=== PATIENT | male | born 1995 | race Caucasian/White ===

== ENCOUNTER 2021-09-27 05:02 | Emergency (ER) | payer SELFPAY ==
[2021-09-27 05:36] VITALS: TEMP 97.7; BMI 41.1
[2021-09-27 06:00] LABS: BASO % 0.5 % (0-2.0); EOS % 0.5 % (0-4.5); HEMATOCRIT 46.5 % (35.4-49); HEMOGLOBIN 15.9 GM/dL (11.7-16.9); LYMPH % 19.9 % (8-40); MCHC 34.1 g/dl (32.0-35.9); MEAN CELL VOLUME 79.2 fl (80-96); MONO % 6.1 % (3.8-10.2); PLATELET COUNT 214 10^3/uL (134-434); RBC 5.87 M/mm3 (4.00-5.60); RDW 13.8 % (11.9-15.9); WHITE BLOOD COUNT 11.4 K/mm3 (4.0-10.0)
[2021-09-27 06:19] LABS: ALBUMIN 3.8 g/dl (3.4-5.0); CALCIUM 8.5 mg/dL (8.5-10.1)
[2021-09-27 06:22] LABS: CREATININE 0.8 mg/dL (0.55-1.3)
[2021-09-27 06:24] LABS: BILIRUBIN,TOTAL 0.6 mg/dL (0.2-1); TOT PROT 7.2 g/dl (6.4-8.2)
[2021-09-27] MEDS ORDERED: FAMOTIDINE 20 MG/50 ML IVPB 20 MG/50 ML MG IVPB ONE (07:39)
[2021-09-27 08:08] VITALS: BP 118/72; PULSE 77
== END 2021-09-27 07:50 | disposition home or self-care (01) ==
LOC: JER 05:02
DX: R07.9 Chest pain, unspecified (principal)
CPT/HCPCS: 36415; 71046-TC-FY; 80053; 83735; 84443; 84484; 85025; 85379; 93005; 93010; 99285-25

== ENCOUNTER 2022-12-26 11:32 | Inpatient (IN) | payer OTHER ==
[2022-12-26] MEDS ORDERED: LACTATED RINGERS SOLUTION 1,000 ML/1,000 ML INFUS.BAG IV STA (12:07)
[2022-12-26] MEDS ORDERED: ONDANSETRON 4 MG/2 ML VIAL IVPUSH ONE (12:08)
[2022-12-26] MEDS ORDERED: FAMOTIDINE 20 MG/50 ML IVPB 20 MG/50 ML MG IVPB ONE (12:08)
[2022-12-26] MEDS ORDERED: ONDANSETRON 4 MG/2 ML VIAL ONE (12:19)
[2022-12-26] MEDS ORDERED: FAMOTIDINE 10 MG/ML VIAL IVPB ONE (12:29)
[2022-12-26 12:44] LABS: BASO % 0.3 % (0-2.0); EOS % 0.1 % (0-4.5); HEMATOCRIT 40.9 % (35.4-49); LYMPH % 17.8 % (8-40); MCH 26.3 pg (25.7-33.7); MCHC 34.3 g/dl (32.0-35.9); MEAN CELL VOLUME 76.6 fl (80-96); MEAN PLT VOLUME 8.7 fl (7.5-11.1); MONO % 7.8 % (3.8-10.2); PLATELET COUNT 114 10^3/uL (134-434); RBC 5.34 M/mm3 (4.00-5.60); RDW 13.6 % (11.9-15.9); WHITE BLOOD COUNT 2.5 K/mm3 (4.0-10.0)
[2022-12-26 12:49] LABS: INR 1.22 (0.83-1.09); PROTHROMBIN TIME (PATIENT) 14.1 SEC (9.7-13.0)
[2022-12-26 13:05] LABS: EPI CELLS >36 /uL (0-25.1); HYALINE CASTS 14 /uL (0-3.1); PH,URINE 5.5 (5.0-8.0); URINE APPEARANCE CLEAR; URINE BILIRUBIN 2+ (NEGATIVE); URINE COLOR DK YELLOW; URINE GLUCOSE (UA) NEGATIVE (NEGATIVE); URINE KETONE TRACE (NEGATIVE); URINE LEUK ESTERASE TRACE (NEGATIVE); URINE NITRITE POSITIVE (NEGATIVE); URINE PROTEIN 1+ (NEGATIVE); URINE RBC 18 /uL (0-23.9); URINE WBC 123 /uL (0-25.8)
[2022-12-26 13:06] LABS: POTASSIUM 3.6 mmol/L (3.5-5.1)
[2022-12-26 13:08] LABS: CALCIUM 8.1 mg/dL (8.5-10.1)
[2022-12-26 13:09] LABS: ALBUMIN 3.8 g/dl (3.4-5.0); BLOOD UREA NITROGEN 8.3 mg/dL (7-18)
[2022-12-26 13:12] LABS: CREATININE 0.8 mg/dL (0.55-1.3); PHOSPHOROUS 2.9 mg/dL (2.5-4.9)
[2022-12-26 13:13] LABS: BILIRUBIN,TOTAL 1.5 mg/dL (0.2-1); TOT PROT 6.9 g/dl (6.4-8.2)
[2022-12-26] MEDS ORDERED: ONDANSETRON 4 MG/2 ML VIAL IVPUSH PRN (15:45)
[2022-12-26] MEDS ORDERED: LOPERAMIDE HCL 2 MG CAPSULE PO PRN (16:37)
[2022-12-26] MEDS: LACTATED RINGERS SOLUTION 1,000 ML/1,000 ML INFUS.BAG IV SCH (16:45)
[2022-12-26 17:19] VITALS: BMI 44.4
[2022-12-27] MEDS ORDERED: ZOLPIDEM TARTRATE 5 MG TABLET PO ONE (02:15)
[2022-12-27 09:09] LABS: HEMATOCRIT 38.1 % (35.4-49); HEMOGLOBIN 13.1 GM/dL (11.7-16.9); MCH 26.3 pg (25.7-33.7); MCHC 34.4 g/dl (32.0-35.9); MEAN CELL VOLUME 76.6 fl (80-96); MEAN PLT VOLUME 8.5 fl (7.5-11.1); PLATELET COUNT 100 10^3/uL (134-434); RBC 4.97 M/mm3 (4.00-5.60); RDW 13.6 % (11.9-15.9)
[2022-12-27 09:31] LABS: POTASSIUM 3.6 mmol/L (3.5-5.1)
[2022-12-27 09:35] LABS: ALBUMIN 3.6 g/dl (3.4-5.0); BLOOD UREA NITROGEN 6.5 mg/dL (7-18); CALCIUM 7.8 mg/dL (8.5-10.1)
[2022-12-27 09:38] LABS: CREATININE 0.9 mg/dL (0.55-1.3)
[2022-12-27 09:39] LABS: BILIRUBIN,TOTAL 1.8 mg/dL (0.2-1); TOT PROT 6.4 g/dl (6.4-8.2)
[2022-12-27] MEDS: PANTOPRAZOLE SODIUM 40 MG VIAL IVPUSH SCH (09:39)
[2022-12-27 16:24] LABS: INR 1.16 (0.83-1.09); PROTHROMBIN TIME (PATIENT) 13.4 SEC (9.7-13.0)
[2022-12-27] MEDS: LACTATED RINGERS SOLUTION 1,000 ML/1,000 ML INFUS.BAG IV SCH (18:40)
[2022-12-28 09:17] LABS: BASO % 0.5 % (0-2.0); EOS % 0.1 % (0-4.5); HEMATOCRIT 38.3 % (35.4-49); HEMOGLOBIN 13.4 GM/dL (11.7-16.9); LYMPH % 27.1 % (8-40); MCH 26.9 pg (25.7-33.7); MCHC 35.2 g/dl (32.0-35.9); MEAN CELL VOLUME 76.5 fl (80-96); MEAN PLT VOLUME 8.5 fl (7.5-11.1); MONO % 11.3 % (3.8-10.2); PLATELET COUNT 89 10^3/uL (134-434); RDW 13.5 % (11.9-15.9); WHITE BLOOD COUNT 2.4 K/mm3 (4.0-10.0)
[2022-12-28 09:44] LABS: POTASSIUM 3.6 mmol/L (3.5-5.1)
[2022-12-28 09:47] LABS: ALBUMIN 3.6 g/dl (3.4-5.0); CALCIUM 8.1 mg/dL (8.5-10.1)
[2022-12-28 09:48] LABS: BLOOD UREA NITROGEN 7.4 mg/dL (7-18)
[2022-12-28 09:51] LABS: CREATININE 0.7 mg/dL (0.55-1.3)
[2022-12-28 09:52] LABS: TOT PROT 6.8 g/dl (6.4-8.2)
[2022-12-28 09:53] LABS: BILIRUBIN,TOTAL 2.4 mg/dL (0.2-1)
[2022-12-28] MEDS ORDERED: LOPERAMIDE HCL 2 MG CAPSULE PO PRN (10:00)
[2022-12-28] MEDS: PANTOPRAZOLE SODIUM 40 MG VIAL IVPUSH SCH (10:06)
[2022-12-28] MEDS: LACTATED RINGERS SOLUTION 1,000 ML/1,000 ML INFUS.BAG IV SCH ×2 (13:53→19:28)
[2022-12-29] MEDS: LACTATED RINGERS SOLUTION 1,000 ML/1,000 ML INFUS.BAG IV SCH ×2 (06:29→22:11)
[2022-12-29 10:46] LABS: BASO % 0.3 % (0-2.0); EOS % 0.4 % (0-4.5); HEMATOCRIT 40.1 % (35.4-49); HEMOGLOBIN 13.3 GM/dL (11.7-16.9); LYMPH % 23.7 % (8-40); MCHC 33.2 g/dl (32.0-35.9); MEAN CELL VOLUME 78.3 fl (80-96); MEAN PLT VOLUME 9.1 fl (7.5-11.1); MONO % 10.8 % (3.8-10.2); NEUT % 64.8 % (42.8-82.8); PLATELET COUNT 106 10^3/uL (134-434); RBC 5.12 M/mm3 (4.00-5.60); RDW 13.5 % (11.9-15.9)
[2022-12-29] MEDS: PANTOPRAZOLE SODIUM 40 MG VIAL IVPUSH SCH (10:59)
[2022-12-29 11:15] LABS: POTASSIUM 3.8 mmol/L (3.5-5.1)
[2022-12-29 11:25] LABS: CALCIUM 8.4 mg/dL (8.5-10.1)
[2022-12-29 11:26] LABS: ALBUMIN 3.6 g/dl (3.4-5.0); BLOOD UREA NITROGEN 6.5 mg/dL (7-18)
[2022-12-29 11:27] LABS: CREATININE 0.7 mg/dL (0.55-1.3)
[2022-12-29 11:30] LABS: BILIRUBIN,TOTAL 2.5 mg/dL (0.2-1); TOT PROT 6.9 g/dl (6.4-8.2)
[2022-12-29 22:56] VITALS: RESP 18
[2022-12-30 07:14] VITALS: BP 112/64; PULSE 83; TEMP 98
[2022-12-30 09:05] LABS: BASO % 0.2 % (0-2.0); EOS % 0.5 % (0-4.5); HEMATOCRIT 37.8 % (35.4-49); HEMOGLOBIN 13.2 GM/dL (11.7-16.9); LYMPH % 22.8 % (8-40); MCH 26.6 pg (25.7-33.7); MCHC 34.8 g/dl (32.0-35.9); MEAN CELL VOLUME 76.4 fl (80-96); MEAN PLT VOLUME 8.7 fl (7.5-11.1); MONO % 10.7 % (3.8-10.2); NEUT % 65.8 % (42.8-82.8); PLATELET COUNT 125 10^3/uL (134-434); RBC 4.94 M/mm3 (4.00-5.60); RDW 13.7 % (11.9-15.9); WHITE BLOOD COUNT 2.9 K/mm3 (4.0-10.0)
[2022-12-30 09:27] LABS: POTASSIUM 3.7 mmol/L (3.5-5.1)
[2022-12-30 09:31] LABS: BLOOD UREA NITROGEN 6.8 mg/dL (7-18); CALCIUM 8.3 mg/dL (8.5-10.1)
[2022-12-30 09:35] LABS: CREATININE 0.7 mg/dL (0.55-1.3)
[2022-12-30] MEDS: PANTOPRAZOLE SODIUM 40 MG VIAL IVPUSH SCH (10:04)
== END 2022-12-30 11:15 | disposition home or self-care (01) | DRG 723 ==
LOC: JER 11:32 → JERBED 13:30 → J7W 15:28
PROVIDERS: ADMIT Family Medicine; ATTEND Family Medicine
DX: A92.0 Chikungunya virus disease (principal); D69.6 Thrombocytopenia, unspecified; Z68.41 Body mass index [BMI] 40.0-44.9, adult; E66.9 Obesity, unspecified; R11.2 Nausea with vomiting, unspecified; R74.01 Elevation of levels of liver transaminase levels; D72.819 Decreased white blood cell count, unspecified
CPT/HCPCS: 36415; 71045-TC-FY; 74177-TC; 76705-TC; 80048; 80053; 80307; 81003; 82550; 82553; 82930; 83615; 83690; 83735; 84100; 85025; 85027; 85610; 86140; 86704; 86705; 86708; 86709; 86790; 86803; 87040; 87045; 87046; 87086; 87205; 87207; 87209; 87340; 87517; 87522; 87529; 87635; 87798; 93005; 93010; 99285-25; Q9967

== ENCOUNTER 2024-12-14 20:56 | Emergency (ER) | payer OTHER ==
[2024-12-14 21:05] VITALS: BP 140/83; PULSE 98; RESP 18; TEMP 98.6; BMI 34.8
== END 2024-12-14 21:22 | disposition left against medical advice (07) ==
LOC: JER 20:56
DX: Z53.21 Procedure and treatment not carried out due to patient leaving prior to being seen by health care provider (principal)
CPT/HCPCS: 99281-25